=== PATIENT | female | born 1995 | race Caucasian/White ===

== ENCOUNTER 2017-12-23 11:53 | Emergency (ER) | payer MEDICAID ==
[~2017-12-23] VITALS: Ht 165.1 cm; Wt 54.4 kg
[2017-12-23 12:08] VITALS: BP_SYST 142
[2017-12-23] MEDS ORDERED: LIDOCAINE 1% 10 MG/ML, 20 ML MDV INJ ONE (12:30)
[2017-12-23 13:29] VITALS: BP_SYST 142
== END 2017-12-23 13:20 | disposition home or self-care (01) ==
LOC: SED 11:53
DX: L02.413 Cutaneous abscess of right upper limb (principal); R03.0 Elevated blood-pressure reading, without diagnosis of hypertension
CPT/HCPCS: 10060; 99283; J2001

== ENCOUNTER 2017-12-25 23:37 | Emergency (ER) | payer MEDICAID ==
[~2017-12-25] VITALS: Ht 165.1 cm; Wt 59.0 kg
[2017-12-25 23:55] VITALS: BP_SYST 120
--- NOTE | 2017-12-26 00:28 | NUR ---
CALLED PT TO BE PLACED IN BED AND NO ANSWER.
--- NOTE | 2017-12-26 00:52 | NUR ---
CALLED PT TO BE PLACED IN BED FOR THE 2ND TIME AND NO ANSWER
--- NOTE | 2017-12-26 01:34 | NUR ---
Dahiana jack in ED - 12/26/17 at 0304 by [email or web address] Patient to bed 3 to [facility] for evaluation. Side rails up. Report given to DAVID DASILVA.
--- NOTE | 2017-12-26 01:40 | NUR ---
CALLED PT TO BE PLACED IN FOR THE 3RD TIME AND NO ANSWER. PT LWBS
== END 2017-12-26 01:40 | disposition left against medical advice (07) ==
LOC: SED 23:37
DX: Z48.01 Encounter for change or removal of surgical wound dressing (principal); Z53.21 Procedure and treatment not carried out due to patient leaving prior to being seen by health care provider

== ENCOUNTER 2017-12-27 19:28 | Emergency (ER) | payer MEDICAID ==
[~2017-12-27] VITALS: Ht 162.6 cm; Wt 59.0 kg
[2017-12-27 19:35] VITALS: BP_SYST 110
[2017-12-27 20:17] VITALS: BP_SYST 115
== END 2017-12-27 20:17 | disposition home or self-care (01) ==
LOC: SED 19:28
DX: Z48.01 Encounter for change or removal of surgical wound dressing (principal)
CPT/HCPCS: 99281